=== PATIENT | male | born 2005 | race Caucasian/White ===

== ENCOUNTER 2024-03-18 06:03 | Emergency (ER) | payer SELFPAY ==
[~2024-03-18] VITALS: Ht 172.7 cm; Wt 73.0 kg
[2024-03-18 06:19] VITALS: BP 142/108; PULSE 118; RESP 20; O2SAT 100
[2024-03-18] MEDS ORDERED: SODIUM CHLORIDE 0.9% 1,000 ML IV ONE (06:30)
[2024-03-18] MEDS ORDERED: LORAZEPAM 2MG/ML INJ IV ONE (06:30)
== END 2024-03-18 06:37 | disposition left against medical advice (07) ==
LOC: ER 06:03
DX: T43.651A Poisoning by methamphetamines accidental (unintentional), initial encounter (principal); F32.9 Major depressive disorder, single episode, unspecified; X58.XXXA Exposure to other specified factors, initial encounter
CPT/HCPCS: 99283; J7030